=== PATIENT | female | born 1955 | race Caucasian/White ===

== ENCOUNTER 2023-02-08 08:52 | Observation (INO) | payer MEDICARE ==
[2023-02-03 10:51] LABS: BASOPHILS # (AUTO) 0.05 K/uL (0.00-0.20); BASOPHILS % (AUTO) 0.7 % (0.0-5.0); EOSINOPHILS # (AUTO) 0.11 K/uL (0.00-0.70); EOSINOPHILS % (AUTO) 1.5 % (0.0-8.0); HEMATOCRIT 43.1 % (36-48); IMMATURE GRANULOCYTE ABSOLUTE 0.03 K/uL (0-1); LYMPHOCYTES # (AUTO) 1.4 K/uL (1.0-4.8); MEAN CORPUSCULAR HEMOGLOBIN 27.9 pg (27.0-33.0); MEAN CORPUSCULAR HGB CONC 31.6 g/dL (32.0-36.0); MEAN CORPUSCULAR VOLUME 88.5 fL (79-99); MONOCYTES # (AUTO) 0.4 K/uL (0.1-1.0); MONOCYTES % (AUTO) 5.6 % (3.0-13.0); NEUTROPHILS # (AUTO) 5.1 K/uL (1.8-7.7); NEUTROPHILS % (AUTO) 71.8 % (40.0-77.0); PLATELET COUNT (AUTO) 316 K/uL (130-400); RED BLOOD CELL COUNT(AUTO) 4.87 MIL/uL (4.00-5.50); RED CELL DISTRIBUTION WIDTH 14.5 % (11.0-15.5); WHITE BLOOD COUNT (AUTO) 7.2 K/uL (4.8-10.8)
[2023-02-03 11:33] LABS: CREATININE 0.9 mg/dL (0.5-1.5)
[2023-02-03 11:38] LABS: INR < 0.93 (0.85-1.15); PROTHROMBIN TIME 10.7 SEC (9.6-11.6)
[2023-02-03 11:40] LABS: PARTIAL THROMBOPLASTIN TIME 31.2 SEC (26.3-35.5)
[2023-02-03 13:53] VITALS: BP 147/72; PULSE 93; RESP 18
[2023-02-08] VITALS (20 sets, daily range): BP systolic 118–181; BP diastolic 37–97; PULSE 68–93; RESP 15–20; O2SAT 96
[~2023-02-08] VITALS: Ht 167.6 cm; Wt 119.2 kg
[~2023-02-08 08:52] MED LIST: ASPI-1197 PO; CHOL12509 PO; CYAN250010 PO; FLUO10CA24 PO; FLUO40CA49 PO; LEVO100 PO; LISI10TA24 PO
[2023-02-08] MEDS ORDERED: LACTATED RINGERS 1000ML 1,000 ML IV ONE (10:29)
[2023-02-08] MEDS ORDERED: CLINDAMYCIN IVPB 600MG/50ML 50 ML IV ONE (10:30)
[2023-02-08] MEDS ORDERED: FAMOTIDINE 20MG VIAL IV ONE (15:39)
[2023-02-08] MEDS ORDERED: HYDROMORPHONE 1 MG INJ ONE (15:39)
[2023-02-08] MEDS ORDERED: CEFAZOLIN SODIUM 2 GM VIAL ONE (15:43)
[2023-02-08] MEDS ORDERED: ROPIVACAINE 0.5% 5MG/ML 30ML IJ ONE (15:47)
[2023-02-08] MEDS ORDERED: MIDAZOLAM HCL 1 MG/ML 2ML VIAL ONE (15:49)
[2023-02-08] MEDS ORDERED: FENTANYL CITRATE PF 50 MCG/1 ML 2ML VIAL ONE (15:49)
[2023-02-08] MEDS ORDERED: TRANEXAMIC ACID 1000MG/10ML ONE (16:01)
[2023-02-08] MEDS ORDERED: MORPHINE 4 MG SYG IVP PRN (16:30)
[2023-02-08] MEDS ORDERED: POTASSIUM CHLORIDE 10% ELIXIR 20 MEQ/15 ML UDCUP PO PRN (16:30)
[2023-02-08] MEDS ORDERED: ONDANSETRON 4MG INJ IVP PRN (16:30)
[2023-02-08] MEDS ORDERED: POTASSIUM CHLORIDE 20MEQ/100ML 100 ML IV PRN (16:30)
[2023-02-08] MEDS ORDERED: KCL 20 MEQ ERTAB PO PRN (16:30)
[2023-02-08] MEDS ORDERED: HYDROCODONE/ACETAMINOPHEN 5/325 MG TAB PO PRN (16:30)
[2023-02-08] MEDS ORDERED: TRANEXAMIC ACID 1000MG/10ML IV ONE (16:30)
[2023-02-08] MEDS ORDERED: GLYCOPYRROLATE 1 MG/5 ML SYRINGE ONE (18:00)
[2023-02-08] MEDS ORDERED: NEOSTIGMINE 5MG/5ML SYR IV ONE (18:01)
[2023-02-08] MEDS ORDERED: ONDANSETRON 4MG INJ ONE (18:01)
[2023-02-08] MEDS ORDERED: ACETAMINOPHEN 1,000 MG/100 ML VIAL IV ONE (19:08)
[2023-02-08] MEDS ORDERED: 0.9%NACL 1000ML 1,000 ML IV ONE (19:08)
[2023-02-08] MEDS ORDERED: TRAMADOL HCL 50 MG TABLET ONE (19:08)
[2023-02-08] MEDS: ACETAMINOPHEN 1,000 MG/100 ML VIAL IV SCH (19:14)
[2023-02-08] MEDS: 0.9%NACL 1000ML 1,000 ML IV SCH (19:14)
[2023-02-08] MEDS: DIPHENHYDRAMINE 2% CREAM 30 GM TP PRN (19:15)
[2023-02-08] MEDS: TRAMADOL HCL 50 MG TABLET PO SCH (19:15)
[2023-02-08] MEDS ORDERED: DIPHENHYDRAMINE HCL 25 MG CAPSULE PO PRN (19:30)
[2023-02-08] MEDS ORDERED: MEPERIDINE-PF 25 MG/ML SYG ONE (19:31)
[2023-02-08] MEDS: FAMOTIDINE 20MG TAB PO SCH (20:49)
[2023-02-08] MEDS: ASPIRIN 81 MG EC TAB PO SCH (20:49)
[2023-02-08] MEDS: IBUPROFEN 800MG + NS 250ML IV SCH (20:49)
[2023-02-08] MEDS ORDERED: CEFAZOLIN SODIUM 2 GM VIAL IVPB SCH (21:30)
[2023-02-08] MEDS: HYDROCODONE/ACETAMINOPHEN 10/325 MG TAB PO PRN (21:33)
[2023-02-09] VITALS (10 sets, daily range): BP systolic 109–155; BP diastolic 44–85; PULSE 79–88; RESP 17–22; O2SAT 95–96
[2023-02-09] MEDS ORDERED: CLINDAMYCIN IVPB 600MG/50ML 50 ML IV SCH (01:00)
[2023-02-09] MEDS: ACETAMINOPHEN 1,000 MG/100 ML VIAL IV SCH ×2 (01:42→03:12)
[2023-02-09] MEDS: TRAMADOL HCL 50 MG TABLET PO SCH ×5 (01:42→23:58)
[2023-02-09] MEDS: DIPHENHYDRAMINE 2% CREAM 30 GM TP PRN (02:55)
[2023-02-09] MEDS: 0.9%NACL 1000ML 1,000 ML IV SCH ×2 (03:52→11:51)
[2023-02-09] MEDS: IBUPROFEN 800MG + NS 250ML IV SCH ×2 (03:52→11:47)
[2023-02-09 03:54] LABS: HEMATOCRIT 36.9 % (36-48); MEAN CORPUSCULAR HEMOGLOBIN 28.3 pg (27.0-33.0); MEAN CORPUSCULAR HGB CONC 31.7 g/dL (32.0-36.0); MEAN CORPUSCULAR VOLUME 89.1 fL (79-99); RED BLOOD CELL COUNT(AUTO) 4.14 MIL/uL (4.00-5.50); RED CELL DISTRIBUTION WIDTH 14.7 % (11.0-15.5); WHITE BLOOD COUNT (AUTO) 10.7 K/uL (4.8-10.8)
[2023-02-09 04:07] LABS: CREATININE 0.8 mg/dL (0.5-1.5); POTASSIUM 4.1 mmol/L (3.5-5.1)
[2023-02-09] MEDS: LEVOTHYROXINE 100 MCG TABLET PO SCH (06:59)
[2023-02-09] MEDS ORDERED: FLUOXETINE HCL 10 MG CAPSULE PO SCH (09:00)
[2023-02-09] MEDS: POLYETHYLENE GLYCOL 3350 17 GM POWD.PACK PO SCH ×2 (09:00→09:10)
[2023-02-09] MEDS: LISINOPRIL 10 MG TABLET PO SCH (09:00)
[2023-02-09] MEDS: ASPIRIN 81 MG EC TAB PO SCH ×2 (09:10→20:19)
[2023-02-09] MEDS: FLUOXETINE HCL 20 MG CAPSULE PO SCH (09:10)
[2023-02-09] MEDS: FAMOTIDINE 20MG TAB PO SCH ×2 (09:10→20:19)
[2023-02-09] MEDS: HYDROCODONE/ACETAMINOPHEN 10/325 MG TAB PO PRN ×2 (09:11→20:24)
[2023-02-10] VITALS: BP 141/72; PULSE 80; RESP 20
[2023-02-10 04:38] VITALS: BP 130/68; PULSE 79; RESP 19
[2023-02-10] MEDS: LEVOTHYROXINE 100 MCG TABLET PO SCH (05:03)
[2023-02-10] MEDS: TRAMADOL HCL 50 MG TABLET PO SCH ×2 (05:18→11:57)
[2023-02-10 07:00] VITALS: O2SAT 96
[2023-02-10 08:00] VITALS: BP 145/76; PULSE 90; RESP 18
[2023-02-10] MEDS: FAMOTIDINE 20MG TAB PO SCH (08:25)
[2023-02-10] MEDS: HYDROCODONE/ACETAMINOPHEN 10/325 MG TAB PO PRN (08:25)
[2023-02-10] MEDS: FLUOXETINE HCL 20 MG CAPSULE PO SCH (08:25)
[2023-02-10] MEDS: ASPIRIN 81 MG EC TAB PO SCH (08:25)
[2023-02-10] MEDS: LISINOPRIL 10 MG TABLET PO SCH (08:27)
[2023-02-10] MEDS: POLYETHYLENE GLYCOL 3350 17 GM POWD.PACK PO SCH (08:27)
[2023-02-10 12:00] VITALS: BP 133/69; PULSE 91; RESP 18
[2023-02-11] MEDS ORDERED: BISACODYL 10 MG SUPP.RECT RC PRN (16:30)
== END 2023-02-10 15:10 | disposition home or self-care (01) ==
LOC: DAH 08:52 → DAHIP 08:53 → 4DH 20:20
PROVIDERS: ADMIT Orthopaedic Surgery; ATTEND Orthopaedic Surgery
DX: M17.12 Unilateral primary osteoarthritis, left knee (principal); E66.9 Obesity, unspecified; G89.18 Other acute postprocedural pain; Z68.41 Body mass index [BMI] 40.0-44.9, adult; Z79.899 Other long term (current) drug therapy
CPT/HCPCS: 80048 ×2; 85025; 85610; 85730; 36415 ×2; 87641; 96365; 96366 ×2; 64447; 93005; 27447; 96375; 96367; 85027; 97161; 97039 ×2; 97116 ×4; 97530 ×3; A6260; Q0163; G0378 ×41; A4600; C1713; J7030 ×2; J7120; J3490 ×6; J3010; J1170; J2710; J2250; J2405; J2175; J2795; J1741 ×3; J0690; A6223; G0168; A4649 ×2; A6212; C1776 ×3; A4930; A4215; A4223; A4222; A4221; A4663